=== PATIENT | female | born 1985 | race African-American/Black ===

== ENCOUNTER 2017-03-16 18:31 | Emergency (ER) | payer BC, OTHER ==
[2017-03-16 18:36] VITALS: TEMP 98; BMI 24.1
--- NOTE | 2017-03-16 18:56 | PDOC ---
History of Present Illness <Sanam Peng - Last Filed: 03/16/17 21:13> - General History Source: Patient Exam Limitations: No Limitations - History of Present Illness Initial Comments: 03/16/17 19:57 The patient is a 33 year old female, with significant past medical history of HTN and migraines, who presents today complaining of a severe headache that progressively worsened throughout the day, paresthesia in the hands bilaterally , and blurred vision in the eyes bilaterally. She states that the headache feels like tension behind the left eye and left forehead. The headache is exacerbated by bright light. She reports associated blurred vision bilaterally and numbness and tingling in the hands bilaterally. She notes nausea, but no vomiting. The headache does not radiate to the neck. These symptoms are similar to the symptoms she has experienced in the past with migraines. Denies lightheadedness, dizziness. Denies fever, chills, vomiting. Allergies: lactose PCP: Dr. Harvey <Ela Lewis - Last Filed: 03/16/17 21:15> - General Chief Complaint: Headache Stated Complaint: MIGRAINE HEADACHE Time Seen by Provider: 03/16/17 18:56 Past History - Past Medical History Asthma: No Cancer: No Cardiac Disorders: No Diabetes: No HTN: Yes Seizures: No Thyroid Disease: No - Psycho/Social/Smoking Cessation Hx Anxiety: No Suicidal Ideation: No Smoking Status: No Smoking History: Never smoked Have you smoked in the past 12 months: No Number of Cigarettes Smoked Daily: 0 Hx Alcohol Use: No Drug/Substance Use Hx: No Substance Use Type: None Hx Substance Use Treatment: No <Sanam Peng - Last Filed: 03/16/17 21:13> <Ela Lewis - Last Filed: 03/16/17 21:15> - Past Medical History Allergies/Adverse Reactions: Allergies Allergy/AdvReac Type Severity Reaction Status Date / Time lactose Allergy Verified 03/16/17 18:37 Home Medications: Ambulatory Orders Lisinopril/Hydrochlorothiazide [Lisinopril-Hctz 20-25 mg Tab] 1 each PO DAILY Review of Systems - Review of Systems Able to Perform ROS?: Yes Comments:: 03/16/17 19:57 GENERAL/CONSTITUTIONAL: No fever or chills. No weakness. HEAD, EYES, EARS, NOSE AND THROAT: +blurred vision bilaterally. No ear pain or discharge. No sore throat. CARDIOVASCULAR: No chest pain or shortness of breath. RESPIRATORY: No cough, wheezing, or hemoptysis. GASTROINTESTINAL: No nausea, vomiting, diarrhea or constipation. GENITOURINARY: No dysuria, frequency, or change in urination. MUSCULOSKELETAL: No joint or muscle swelling or pain. No neck or back pain. SKIN: No rash NEUROLOGIC: +headache, photophobia. No vertigo, loss of consciousness, or change in strength/sensation. ENDOCRINE: No increased thirst. No abnormal weight change. HEMATOLOGIC/LYMPHATIC: No anemia, easy bleeding, or history of blood clots. ALLERGIC/IMMUNOLOGIC: No hives or skin allergy. <Ela Lewis - Last Filed: 03/16/17 21:15> *Physical Exam - Vital Signs Last Vital Signs Temp Pulse Resp BP Pulse Ox 98.0 F 80 20 175/110 100 03/16/17 18:34 03/16/17 18:34 03/16/17 18:34 03/16/17 18:34 03/16/17 18:34 <Sanam Peng - Last Filed: 03/16/17 21:13> - Vital Signs Last Vital Signs Temp Pulse Resp BP Pulse Ox 98.0 F 80 20 175/110 100 03/16/17 18:34 03/16/17 18:34 03/16/17 18:34 03/16/17 18:34 03/16/17 18:34 - Physical Exam Comments: 03/16/17 19:58 GENERAL: Awake, alert, and fully oriented, in no acute distress HEAD: No signs of trauma EYES: PERRLA, EOMI, sclera anicteric, conjunctiva clear ENT: Auricles normal inspection, hearing grossly normal, nares patent, oropharynx clear without exudates. Moist mucosa NECK: Normal ROM, supple, no lymphadenopathy, JVD, or masses LUNGS: Breath sounds equal, clear to auscultation bilaterally. No wheezes, and no crackles HEART: Regular rate and rhythm, normal S1 and S2, no murmurs, rubs or gallops ABDOMEN: Soft, nontender, normoactive bowel sounds. No guarding, no rebound. No masses EXTREMITIES: Normal range of motion, no edema. No clubbing or cyanosis. No cords, erythema, or tenderness NEUROLOGICAL: Cranial nerves II through XII grossly intact. Normal speech, normal gait SKIN: Warm, Dry, normal turgor, no rashes or lesions noted. <Ela Lewis - Last Filed: 03/16/17 21:15> ED Treatment Course - LABORATORY CBC & Chemistry Diagram: 03/16/17 19:25 03/16/17 19:25 <Sanam Peng - Last Filed: 03/16/17 21:13> - LABORATORY CBC & Chemistry Diagram: 03/16/17 19:25 03/16/17 19:25 - ADDITIONAL ORDERS Additional order review: 03/16/17 19:25 RBC 4.22 D MCV 93.1 MCHC 33.2 RDW 12.4 MPV 10.1 D Neutrophils % 32.5 L D Lymphocytes % 51.8 H D Monocytes % 14.7 H D Eosinophils % 0.4 D Basophils % 0.6 <Ela Lewis - Last Filed: 03/16/17 21:15> Medical Decision Making - Medical Decision Making 03/16/17 20:10 Patient presents to the ED complaining of frontal headache that is similar to her chronic migraine. Denies nausea, vomiting, fever or photophobia. Pain is gradual onset. Low suspicion for subrarachoid. Will treat with reglan and toradol and reassess. Likely discharge home when pain is controlled. <Sanam Peng - Last Filed: 03/16/17 21:13> *DC/Admit/Observation/Transfer - Discharge Dispostion Admit: No <Sanam Peng - Last Filed: 03/16/17 21:13> - Attestations Scribe Attestion: 03/16/17 19:58 Documentation prepared by PETRA Vu, acting as medical director/head team physician for Sanam Peng MD. <Ela Lewis - Last Filed: 03/16/17 21:15> Diagnosis at time of Disposition: Migraine
[2017-03-16] MEDS ORDERED: METOCLOPRAMIDE HCL INJECTION 10 MG/2 ML VIAL IVPB ONE (19:16)
[2017-03-16] MEDS ORDERED: KETOROLAC TROMETHAMINE 30 MG/1 ML VIAL IVPUSH ONE (19:16)
[2017-03-16] MEDS ORDERED: METOCLOPRAMIDE HCL INJECTION 10 MG/2 ML VIAL ONE (19:22)
[2017-03-16] MEDS ORDERED: KETOROLAC TROMETHAMINE 30 MG/1 ML VIAL ONE (19:22)
[2017-03-16 19:52] LABS: BASOPHIL 0.6 % (0-2.0); EOSINOPHIL 0.4 % (0-4.5); MCH 30.9 pg (25.7-33.7); MCHC 33.2 g/dl (32.0-36.0); MEAN CELL VOLUME 93.1 fl (80-96); MEAN PLT VOLUME 10.1 fl (7.5-11.1); NEUTROPHILS 32.5 % (42.8-82.8); PLATELET COUNT 156 K/MM3 (134-434); RDW 12.4 % (11.6-15.6)
[2017-03-16 20:22] LABS: ALBUMIN 4.3 g/dl (3.4-5.0); ALK PHOS 58 U/L (45-117); ANION GAP 7 (8-16); BILIRUBIN,TOTAL 0.5 mg/dL (0.2-1.0); CALCIUM 9.8 mg/dL (8.5-10.1); CO2 31 mmol/L (21-32); CREATININE 0.9 mg/dL (0.55-1.02); GLUCOSE,RANDOM 79 mg/dL (74-106); SGOT/AST 30 U/L (15-37); SGPT/ALT 47 U/L (12-78); TOT PROT 8.6 g/dl (6.4-8.2)
[2017-03-16 21:34] VITALS: BP 142/74; PULSE 76
== END 2017-03-16 21:31 | disposition home or self-care (01) ==
LOC: JER 18:31
PROC: 3E0333Z Introduction of Anti-inflammatory into Peripheral Vein, Percutaneous Approach (ICD-10-PCS; principal; 2017-03-16)
PROC: 3E033GC Introduction of Other Therapeutic Substance into Peripheral Vein, Percutaneous Approach (ICD-10-PCS; 2017-03-16)
DX: G43.909 Migraine, unspecified, not intractable, without status migrainosus (principal); I10 Essential (primary) hypertension
CPT/HCPCS: 36415; 80053; 84703; 85025; 99283-25

== ENCOUNTER 2019-01-04 17:11 | Emergency (ER) | payer OTHER, BC | END 2019-01-04 22:52 | disposition home or self-care (01) | LOC: JER 17:11 ==